=== PATIENT | male | born 1950 | race African-American/Black ===

== ENCOUNTER 2021-12-23 16:16 | Emergency (ER) | payer MEDICARE ==
[~2021-12-23] VITALS: Ht 188 cm; Wt 80.0 kg
[2021-12-23] MEDS ORDERED: SODIUM CHLORIDE 0.9% 1,000 ML IV ONE (16:45)
[2021-12-23 17:12] LABS: BASOPHILS % 0.7 % (0.0-2.0); EOSINOPHILS % 1.6 % (0.0-5.0); HEMATOCRIT. 42.9 % (42.0-52.0); HEMOGLOBIN. 15.4 g/dL (14.0-18.0); LYMPHOCYTES % 32.7 % (20.0-50.0); MEAN CORPUSCULAR HEMOGLOBIN 29.4 pg (28.0-32.0); MEAN PLATELET VOLUME 10.5 fl (7.4-10.4); MONOCYTES % 5.8 % (2.0-8.0); NEUTROPHILS % 59.2 % (40.0-76.0); PLATELET 88 x1000/uL (130-400); RED BLOOD CELL COUNT 5.24 mill/uL (4.7-6.1); RED CELL DISTRIBUTION WIDTH 13.7 % (11.6-14.6)
[2021-12-23 17:19] LABS: CHLORIDE 100 mEq/L (98-107)
[2021-12-23] MEDS ORDERED: POTASSIUM CHLORIDE 20MEQ TABLET SR PO NR (18:00)
[2021-12-23] MEDS ORDERED: KCL 10MEQ/50ML PREMIX 50 ML IV NR (18:00)
[2021-12-23 20:05] LABS: CLARITY URINE CLEAR (CLEAR); COLOR URINE YELLOW (YELLOW); KETONES URINE NEGATIVE (NEGATIVE); LEUKOCYTE ESTERASE URINE NEGATIVE (NEGATIVE); NITRITE URINE NEGATIVE (NEGATIVE); OCCULT BLOOD URINE NEGATIVE (NEGATIVE); PH URINE 5.5 (4.5-8.0); PROTEIN URINE TRACE (NEGATIVE); SPECIFIC GRAVITY URINE 1.017 (1.005-1.030)
[2021-12-23 20:11] VITALS: BP 146/80
== END 2021-12-23 20:14 | disposition home or self-care (01) ==
LOC: ER 16:16
DX: R55 Syncope and collapse (principal); E87.6 Hypokalemia; R42 Dizziness and giddiness; F17.290 Nicotine dependence, other tobacco product, uncomplicated; I10 Essential (primary) hypertension
CPT/HCPCS: 36415; 70450; 71045; 72125; 80053; 81003; 82962; 83735; 84484; 85025; 93005; 96361; 96365; 99285; J3480; J7030

== ENCOUNTER 2023-09-14 16:40 | Emergency (ER) | payer MEDICARE ==
[~2023-09-14] VITALS: Ht 182.9 cm; Wt 77.0 kg
[2023-09-14 17:03] VITALS: TEMP 98; O2SAT 100
[2023-09-14] MEDS ORDERED: LIDOCAINE HCL/EPINEPHRINE 1%-EPI 1:100,000 20 ML VIAL INFIL ONE (19:00)
[2023-09-14] MEDS ORDERED: TETANUS, DIPHTHERIA, PERTUSSIS VAC/PF 0.5ML (>10YR OLD) IM ONE ×2 (19:00→23:35)
[2023-09-14] MEDS ORDERED: LIDOCAINE HCL/PF 1% 10 MG/ML 5ML VIAL INFIL ONE (21:30)
[2023-09-14] MEDS ORDERED: BACITRACIN ZINC OINT UDPKT TOP ONE (21:30)
[2023-09-14] MEDS ORDERED: BO1 TP (21:30)
[2023-09-14 22:51] VITALS: BP 122/74; PULSE 84; RESP 18
== END 2023-09-14 22:53 | disposition home or self-care (01) ==
LOC: ER 16:40
DX: S61.412A Laceration without foreign body of left hand, initial encounter (principal); S09.90XA Unspecified injury of head, initial encounter; I10 Essential (primary) hypertension; W18.39XA Other fall on same level, initial encounter; Y93.89 Activity, other specified; Y92.89 Other specified places as the place of occurrence of the external cause; Y99.8 Other external cause status
CPT/HCPCS: 71045; 73130; 90471; 90715; 99285